=== PATIENT | male | born 1965 | race Caucasian/White ===

== ENCOUNTER 2018-01-19 09:26 | Emergency (ER) | payer OTHER, MEDICAID ==
[~2018-01-19] VITALS: Ht 175.3 cm; Wt 80.7 kg
[2018-01-19] MEDS ORDERED: SODIUM CHLORIDE 0.9% 1,000 ML IV ONE ×2 (10:02)
[2018-01-19] MEDS ORDERED: KETOROLAC TROMETH 30 MG/ML 1ML VIAL IV ONE (10:15)
[2018-01-19 10:29] VITALS: BP 169/120
[2018-01-19 10:49] LABS: Urine Bacteria NONE SEEN /hpf (None Seen); Urine Blood Negative /uL (Negative); Urine Specific Gravity 1.024 (1.001-1.035); Urine WBC <1 /hpf (0 - 3)
[2018-01-19 10:53] LABS: Basophils # (auto) 0.1 uL; Basophils % (auto) 1.1 % (0.0-2.0); Eosinophils # (auto) 0.1 uL; Eosinophils % (auto) 1.2 % (0.0-7.0); Hematocrit 41.9 % (41.0-53.0); Hemoglobin 14.9 g/dL (13.5-17.5); Lymphocytes # (auto) 2.4 uL; Lymphocytes % (auto) 26.1 % (10.0-50.0); Mean Corpuscular Hemoglobin 32.9 pg (28.0-32.0); Mean Corpuscular Hgb Conc. 35.4 g/dL (32.0-36.0); Mean Corpuscular Volume 92.8 fL (80.0-100.0); Monocytes # (auto) 0.8 uL; Monocytes % (auto) 9.1 % (0.0-12.0); Neutrophils # (auto) 5.7 uL; Neutrophils % (auto) 62.5 % (37.0-80.0); Nucleated Red Blood Cells % 0.1 %; Platelet Count (auto) 348 10^3/uL (140-450); Red Blood Cells 4.52 10^6/uL (4.5-5.90); Red Cell Distribution Width 13.4 % (11.8-14.3); White Blood Cell 9.2 10^3/uL (4.4-10.8)
[2018-01-19 11:18] LABS: Albumin 4.2 g/dL (3.4-5.0); BUN/Creatinine Ratio 17.2; Bilirubin, Total 0.5 mg/dL (0.2-1.0); Calcium 9.1 mg/dL (8.5-10.1); Potassium 3.4 mmol/L (3.5-5.1)
[2018-01-19 11:22] LABS: INR 0.93 (0.9-1.15); Partial Thromboplastin Time 28.8 sec (23.78-33.04)
== END 2018-01-19 13:18 | disposition home or self-care (01) ==
LOC: EDBD 09:26 → ER 09:29
DX: R10.31 Right lower quadrant pain (principal); R11.2 Nausea with vomiting, unspecified; I10 Essential (primary) hypertension; F17.210 Nicotine dependence, cigarettes, uncomplicated
CPT/HCPCS: 36415; 71045; 74176; 80053; 81001; 84484; 85025; 85610; 85730; 93005; 96361; 96374; 99285; J1885

== ENCOUNTER 2018-09-27 17:23 | Emergency (ER) | payer OTHER, MEDICAID ==
[~2018-09-27] VITALS: Ht 175.3 cm; Wt 79.4 kg
[2018-09-27 17:45] VITALS: BP 136/94
== END 2018-09-27 21:28 | disposition left against medical advice (07) ==
LOC: EDBD 17:23 → ER 17:23
DX: R10.31 Right lower quadrant pain (principal); Z53.21 Procedure and treatment not carried out due to patient leaving prior to being seen by health care provider

== ENCOUNTER 2019-11-11 06:08 | Day surgery (SDC) | payer OTHER, MEDICAID ==
[~2019-11-11] VITALS: Ht 175.3 cm; Wt 81.6 kg
[~2019-11-11 06:08] MED LIST: METH27TA19 PO; METO25TA5 PO; ROSU10TA16 PO
[2019-11-11] MEDS ORDERED: MEPERIDINE HCL (25 MG/ML) 1ML VIAL ONE (07:00)
[2019-11-11] MEDS ORDERED: SODIUM CHLORIDE LOCK 10 ML ONE (07:01)
[2019-11-11] MEDS ORDERED: fentaNYL CITRATE 100 MCG/2 ML VL ONE (07:01)
[2019-11-11] MEDS ORDERED: PROPOFOL 10 MG/ML 20 ML IV ONE (07:01)
[2019-11-11] MEDS ORDERED: MIDAZOLAM HCL 1MG/1ML-2 ML VIAL ONE (07:01)
[2019-11-11] MEDS ORDERED: ONDANSETRON HCL 4 MG/2 ML VIAL ONE (07:01)
[2019-11-11] MEDS ORDERED: ceFAZolin 1GM/50ML 100 ML IV ONE (07:07)
[2019-11-11] MEDS ORDERED: BUPIVACAINE 0.25% INJ 50ML VIAL ONE (07:07)
[2019-11-11] MEDS ORDERED: LIDOCAINE W/ EPINEPHRINE 1% 20ML VIAL ONE (07:07)
[2019-11-11] MEDS ORDERED: HEPARIN SODIUM (PORCINE) 5000 UNITS/ML 1ML VIAL ONE ×2 (07:07→07:08)
[2019-11-11] MEDS ORDERED: MORPHINE SULFATE 4 MG/ML SYR/VIAL IV PRN (07:30)
[2019-11-11] MEDS ORDERED: KETOROLAC TROMETH 30 MG/ML 1ML VIAL IV ONE (07:30)
[2019-11-11] MEDS ORDERED: fentaNYL CITRATE 100 MCG/2 ML VL IV PRN (07:30)
[2019-11-11] MEDS ORDERED: METOCLOPRAMIDE HCL 5MG/ml INJ 2ml VIAL IV PRN (07:30)
[2019-11-11] MEDS ORDERED: HYDROmorphone HCL 2 MG/ML VL IV PRN (07:30)
[2019-11-11] MEDS ORDERED: LIDOCAINE HCL 2% TOP JELLY 5ML TOP ONE (07:51)
[2019-11-11] MEDS ORDERED: LIDOCAINE 2% (LOCAL ANESTH.) PF 5ml SDV ONE (07:51)
[2019-11-11] MEDS ORDERED: BACITRACIN INJ 50000 UNIT VIAL ONE (08:07)
[2019-11-11] MEDS ORDERED: HYDR-392 PO (08:46)
[2019-11-11] MEDS ORDERED: DOCU-94 PO (08:47)
[2019-11-11 10:06] VITALS: BP 127/82
== END 2019-11-11 10:12 | disposition home or self-care (01) ==
LOC: SUR 06:08
PROVIDERS: ATTEND Surgery
DX: K40.90 Unilateral inguinal hernia, without obstruction or gangrene, not specified as recurrent (principal); F17.210 Nicotine dependence, cigarettes, uncomplicated; Z98.890 Other specified postprocedural states; Z11.59 Encounter for screening for other viral diseases; I10 Essential (primary) hypertension; I49.9 Cardiac arrhythmia, unspecified; Z79.899 Other long term (current) drug therapy
CPT/HCPCS: 49505; 88304; C1781; J0690; J1644; J2001; J2175; J2250; J2405; J2704; J3010; J3490; U0003

== ENCOUNTER 2021-05-30 15:45 | Inpatient (IN) | payer OTHER, MEDICAID ==
[~2021-05-30] VITALS: Ht 175.3 cm; Wt 86.3 kg
[~2021-05-30 15:45] MED LIST changes: +DOCU-94 PO; +HYDR-392 PO
[2021-05-30] MEDS ORDERED: MORPHINE SULFATE 4 MG/ML SYR/VIAL ONE (16:13)
[2021-05-30] MEDS ORDERED: ONDANSETRON HCL 4 MG/2 ML VIAL ONE (16:14)
[2021-05-30] MEDS ORDERED: HEPARIN 1,000 UNITS/ml 1ML VIAL IV ONE (16:15)
[2021-05-30] MEDS ORDERED: HEPARIN SODIUM (PORCINE) 5000 UNITS/ML 1ML VIAL ONE ×2 (16:15→16:48)
[2021-05-30] MEDS ORDERED: MORPHINE SULFATE 4 MG/ML SYR/VIAL IV ONE (16:15)
[2021-05-30] MEDS ORDERED: ONDANSETRON HCL 4 MG/2 ML VIAL IV ONE (16:15)
[2021-05-30] MEDS ORDERED: IODIXANOL 320MG/ML 100ML BTL IV ONE (16:36)
[2021-05-30] MEDS ORDERED: LIDOCAINE 2%HCL (LOCAL ANESTH.) INJ 20ML MDV ONE (16:36)
[2021-05-30] MEDS ORDERED: fentaNYL CITRATE 100 MCG/2 ML VL ONE (16:48)
[2021-05-30] MEDS ORDERED: MIDAZOLAM HCL 2MG/2ML 2ml VIAL (1mg/ml) ONE (16:48)
[2021-05-30] MEDS ORDERED: SODIUM CHL 0.9% 50 ML ONE (16:48)
[2021-05-30] MEDS ORDERED: ANGIOMAX 250 MG VIAL IV ONE (16:48)
[2021-05-30] MEDS ORDERED: VERAPAMIL 2.5MG/ML INJ 2ML VIAL IV ONE (16:48)
[2021-05-30 16:52] LABS: Basophils # (auto) 0.1 10 ^3/uL (0-0.2); Basophils % (auto) 0.8 % (0.0-2.0); Eosinophils # (auto) 0.3 10 ^3/uL (0-0.8); Eosinophils % (auto) 3.5 % (0.0-7.0); Hematocrit 41.6 % (41.0-53.0); Hemoglobin 14.2 g/dL (13.5-17.5); Lymphocytes # (auto) 3.1 10 ^3/uL (0.4-5.4); Lymphocytes % (auto) 32.8 % (10.0-50.0); Mean Corpuscular Hemoglobin 32.1 pg (28.0-32.0); Mean Corpuscular Hgb Conc. 34.2 g/dL (32.0-36.0); Mean Corpuscular Volume 93.7 fL (80.0-100.0); Monocytes # (auto) 0.8 10 ^3/uL (0-1.3); Monocytes % (auto) 7.9 % (0.0-12.0); Neutrophils # (auto) 5.2 10 ^3/uL (1.6-8.6); Red Blood Cells 4.44 10^6/uL (4.5-5.90); Red Cell Distribution Width 13.2 % (11.8-14.3); White Blood Cell 9.5 10^3/uL (4.4-10.8)
[2021-05-30] MEDS ORDERED: ATROPINE SULF 1 MG/10ml SYR ONE (17:11)
[2021-05-30 17:15] LABS: Albumin 3.8 g/dL (3.4-5.0); Magnesium 2.4 mg/dL (1.6-2.6)
[2021-05-30] MEDS ORDERED: TICAGRELOR 90 MG TAB ONE (17:17)
[2021-05-30] MEDS ORDERED: ASPirin 325 MG TAB ONE (17:17)
[2021-05-30 17:20] LABS: BUN/Creatinine Ratio 15.2; Bilirubin, Total 0.3 mg/dL (0.2-1.0); Total Protein 7.4 g/dL (6.4-8.2)
[2021-05-30 17:36] VITALS: BP 103/78
[2021-05-30 17:45] VITALS: BP 122/91
[2021-05-30] MEDS ORDERED: NITROGLYCERIN 0.4 MG SL TAB SL PRN (17:45)
[2021-05-30] MEDS ORDERED: MORPHINE SULFATE INJECTION 2 MG/ML SYRG IV PRN (17:45)
[2021-05-30 18:00] VITALS: BP 135/92
[2021-05-30] MEDS ORDERED: hydrALAZINE HCL 10 MG TAB PO PRN (18:00)
[2021-05-30 18:15] VITALS: BP 142/98
[2021-05-30 18:30] VITALS: BP 147/103
[2021-05-30] MEDS ORDERED: HYDROcodone-ACET 5/325MG TAB PO PRN (18:30)
[2021-05-30] MEDS ORDERED: ACETAMINOPHEN 325 MG TAB PO PRN (18:30)
[2021-05-30] MEDS ORDERED: ONDANSETRON HCL 4 MG/2 ML VIAL IV PRN (18:30)
[2021-05-30 19:25] VITALS: BP 136/91
[2021-05-30 19:55] LABS: Cholesterol 246 mg/dL (< 200); HDL Cholesterol 58 mg/dL (40-59); LDL Cholesterol 136 mg/dL (< 100); Triglycerides 392 mg/dL (< 150)
[2021-05-30] MEDS: ENALAPRIL MALEATE 2.5 MG TAB PO SCH (20:58)
[2021-05-30] MEDS: ATORVASTATIN 20 MG TAB PO SCH (20:58)
[2021-05-30] MEDS ORDERED: KEP500T PO (22:38)
[2021-05-31 02:40] LABS: Urine WBC None Seen /hpf (0 - 3)
[2021-05-31 03:11] LABS: Amphetamine Screen, Urine POSITIVE (NEGATIVE); Barbiturate Scree,Urine NEGATIVE (NEGATIVE); Benzodiazephine Screen, Urine POSITIVE (NEGATIVE); Cannabinoid Screen, Urine NEGATIVE (NEGATIVE); Cocaine Screen, Urine NEGATIVE (NEGATIVE); Opiate Scree,Urine POSITIVE (NEGATIVE); Phencyclidine Screen, Urine NEGATIVE (NEGATIVE)
[2021-05-31 03:12] LABS: Urine Bacteria NONE SEEN /hpf (None Seen); Urine Blood Negative /uL (Negative)
[2021-05-31 03:13] LABS: Urine Specific Gravity > 1.050 (1.001-1.035)
[2021-05-31 03:16] LABS: Basophils # (auto) 0.1 10 ^3/uL (0-0.2); Basophils % (auto) 0.5 % (0.0-2.0); Eosinophils # (auto) 0.1 10 ^3/uL (0-0.8); Eosinophils % (auto) 0.9 % (0.0-7.0); Hematocrit 40.4 % (41.0-53.0); Hemoglobin 13.5 g/dL (13.5-17.5); Lymphocytes # (auto) 1.7 10 ^3/uL (0.4-5.4); Lymphocytes % (auto) 12.8 % (10.0-50.0); Mean Corpuscular Hemoglobin 31.5 pg (28.0-32.0); Mean Corpuscular Hgb Conc. 33.5 g/dL (32.0-36.0); Monocytes # (auto) 0.8 10 ^3/uL (0-1.3); Monocytes % (auto) 5.9 % (0.0-12.0); Neutrophils # (auto) 10.6 10 ^3/uL (1.6-8.6); Neutrophils % (auto) 79.9 % (37.0-80.0); Nucleated Red Blood Cells % 0.3 %; Red Cell Distribution Width 13.3 % (11.8-14.3); White Blood Cell 13.2 10^3/uL (4.4-10.8)
[2021-05-31 03:31] LABS: Calcium 8.5 mg/dL (8.5-10.1); Potassium 3.8 mmol/L (3.5-5.1)
[2021-05-31 03:36] LABS: BUN/Creatinine Ratio 18.2
[2021-05-31 04:20] VITALS: BP 139/97
[2021-05-31] MEDS: TICAGRELOR 90 MG TAB PO SCH ×2 (05:17→18:29)
[2021-05-31 08:00] VITALS: BP 134/87
[2021-05-31 09:00] VITALS: BP 133/91
[2021-05-31] MEDS ORDERED: FAMOTIDINE 20 MG TAB PO SCH (10:00)
[2021-05-31] MEDS ORDERED: METOPROLOL SUCCINATE XL 50 MG TAB PO SCH (10:00)
[2021-05-31] MEDS ORDERED: ASPirin 81 mg TAB PO SCH (10:00)
[2021-05-31] MEDS: ENALAPRIL MALEATE 2.5 MG TAB PO SCH ×2 (11:11→21:40)
[2021-05-31] MEDS: levETIRAcetam 500 MG TAB PO SCH ×2 (11:12→21:40)
[2021-05-31 13:00] VITALS: BP 128/80
[2021-05-31 16:35] VITALS: BP 122/78
[2021-05-31] MEDS ORDERED: TICA90TA PO (18:27)
[2021-05-31] MEDS ORDERED: ATOR20TA50 PO (18:27)
[2021-05-31] MEDS ORDERED: METO25TA5 PO (18:27)
[2021-05-31] MEDS ORDERED: ASPI1CHW15 PO (18:27)
[2021-05-31] MEDS ORDERED: ENAL2.5T7 PO (18:27)
[2021-05-31] MEDS: ATORVASTATIN 20 MG TAB PO SCH (18:29)
[2021-05-31 22:00] VITALS: BP 121/75
[2021-06-01 04:00] VITALS: BP 105/65
[2021-06-01] MEDS: TICAGRELOR 90 MG TAB PO SCH (05:49)
[2021-06-01 09:00] VITALS: BP 109/79
[2021-06-01 09:34] VITALS: BP 109/79
== END 2021-06-01 10:30 | disposition home or self-care (01) | DRG 246 ==
LOC: EDBD 15:45 → EDUNIT# 15:45 → ER 15:45 → TELE 18:36 → TELE-CENTR 19:23
PROVIDERS: ADMIT Internal Medicine; ATTEND Hospitalist
PROC: 4A023N7 Measurement of Cardiac Sampling and Pressure, Left Heart, Percutaneous Approach (ICD-10-PCS; principal; 2021-05-30)
PROC: 027036Z Dilation of Coronary Artery, One Artery with Three Drug-eluting Intraluminal Devices, Percutaneous Approach (ICD-10-PCS; 2021-05-30)
PROC: B211YZZ Fluoroscopy of Multiple Coronary Arteries using Other Contrast (ICD-10-PCS; 2021-05-30)
DX: I21.19 ST elevation (STEMI) myocardial infarction involving other coronary artery of inferior wall (principal); I50.43 Acute on chronic combined systolic (congestive) and diastolic (congestive) heart failure; N17.9 Acute kidney failure, unspecified; E78.00 Pure hypercholesterolemia, unspecified; E78.5 Hyperlipidemia, unspecified; F17.210 Nicotine dependence, cigarettes, uncomplicated; I11.9 Hypertensive heart disease without heart failure; I25.10 Atherosclerotic heart disease of native coronary artery without angina pectoris; R56.9 Unspecified convulsions; Z82.49 Family history of ischemic heart disease and other diseases of the circulatory system
CPT/HCPCS: 36415; 71045; 80048; 80053; 80061; 80307; 81001; 82962; 83036; 83735; 84484; 85025; 85379; 92928; 92929; 93005; 93306; 96374; 96375; 99152; 99153; 99291; C1874; C1887; G0378; J2250; J2405; Q9967